=== PATIENT | female | born 2000 | race Caucasian/White ===

== ENCOUNTER 2019-02-14 12:17 | Outpatient (RCR) | payer OTHER, SELFPAY ==
--- NOTE | 2019-02-14 12:17 | COCO.CNN ---
Primary Reason for Visit Insurance Referral to Care Coordination Referral to Care Coordination: No Referral to Services: No - Referral From Referral From: Self Care Plan - Plan of Care Assessment/Background: Patient walked into [facility] office to apply for insurance. Completed intake- gave intake to [facility] navigator/CHW. Plan of Care: Plan to reconnect with patient to discuss insurance. [facility] Self Management Goals: insurance Confidence Level (enter 1-10): 10 Action Plan/Progress: Plan to reconnect with patient to discuss insurance.
[2019-02-14 18:02] LABS: *AMPHETAMINES SCREEN URINE Negative (Negative); *BARBITURATES SCREEN URINE Negative (Negative); *BENZODIAZEPINES SCREEN URINE Negative (Negative); Cannabinoids THC Negative (Negative); Cocaine Screen,Urine Negative (Negative); METHADONE URINE SCREEN Negative (Negative); OPIATES URINE SCREEN Negative (Negative)
[2019-02-14 18:55] LABS: Tricyclic Antidepressants Negative (Negative)
--- NOTE | 2019-02-17 14:51 | PDOC.CNN_ITS ---
Primary Reason for Visit Insurance Referral to Care Coordination Referral to Care Coordination: No Referral to Services: No - Referral From Referral From: Self Care Plan - Plan of Care Assessment/Background: CHW reached out to patient via phone to follow up. CHW connected with [facility] navigator Fely and determined that patient is not eligible for Medicaid. CHW notified patient of mistake indicating that patient is not eligible for Medicaid. Discussion included completing patient assistance applications. Plan of Care: Patient plans to attend scheduled appointment at [facility] with CHW on 02/06. [facility] Self Management Plan Complete?: Yes Confidence Level (enter 1-10): 10 Action Plan/Progress: Patient plans to attend scheduled appointment at [facility] with CHW on 02/06.
--- NOTE | 2019-02-18 10:52 | PDOC.CNN_ITS ---
Primary Reason for Visit Financial Referral to Care Coordination Referral to Care Coordination: No Referral to Services: No - Referral From Referral From: Self Care Plan - Plan of Care Assessment/Background: Patient attended scheduled appointment at [facility] office. CHW supported patient in completing patient assistance applications for [facility] and [facility]. Patient plans to gather needed forms for patient assistance applications before applications can be submitted. Once patient gathers forms and brings them to CHW- CHW will submit applications. Patient plans to schedule appointment at [facility] for care.
[2019-02-24 13:19] LABS: Buprenorphine Negative; Norbuprenorphine Negative
--- NOTE | 2019-02-27 15:38 | COCO.CNN ---
Primary Reason for Visit Financial Referral to Care Coordination Referral to Care Coordination: No Referral to Services: No - Referral From Referral From: Self Care Plan - Plan of Care Assessment/Background: Patient and CHW in contact at [facility] office. Discussed patient assistance applications- patient is still in need of her husbands tax return and bank statements before applications can be submitted/ processed. Plan of Care: Patient plans to return with bank statements and copy of taxes. Once CHW has forms applications will be completed and submitted. [facility] Self Management Plan Complete?: Yes Self Management Goals: medical/financial Confidence Level (enter 1-10): 10 Action Plan/Progress: Patient plans to return with bank statements and copy of taxes. Once CHW has forms applications will be completed and submitted.
== END 2019-02-27 23:59 | disposition home or self-care (01) ==
LOC: COCO 12:17
PROVIDERS: Advanced Practice Midwife; PCP Pediatrics; Visit Provider Pediatrics
DX: Z34.92 Encounter for supervision of normal pregnancy, unspecified, second trimester (principal)
CPT/HCPCS: 80307; 87086

== ENCOUNTER 2019-03-17 01:43 | Outpatient (CLI) | payer OTHER, SELFPAY ==
--- NOTE | 2019-03-17 14:32 | DI.US_ITS ---
EXAM: US OB 2-3 TRIMESTER CLINICAL HISTORY: ,z34.90 TECHNIQUE: Ultrasound performed using standard protocol. COMPARISON: No exams were available for comparison FINDINGS: The fetus is in breech position. The placenta is posterior. Biometric measurements correspond to 21 weeks 6 days and an EDC of 22 July 2019. No abnormalities are seen. The amount of amnioti c fluid appears visually normal. IMPRESSION: survey is within normal limits.
== END 2019-03-17 02:03 ==
PROVIDERS: Visit Provider Advanced Practice Midwife
DX: Z34.92 Encounter for supervision of normal pregnancy, unspecified, second trimester (principal)
CPT/HCPCS: 76805

== ENCOUNTER 2019-05-02 01:51 | Outpatient (CLI) | payer OTHER, SELFPAY ==
[2019-05-02 15:20] LABS: HCT 33.2 % (36.0-46.0); HGB 11.4 g/dL (12.0-15.5); Mean Corp. HGB Concentration 34.3 g/dL (32.0-36.0); Mean Corpuscular Hemoglobin 30.4 pg (27.0-33.0); Mean Corpuscular Volume 88.5 fL (80-95); Mean Platelet Volume 8.6 fL (8.0-11.0); Platelet Count 268 x1000/uL (130-400); RBC 3.75 m/cumm (4.00-5.20); RBC Distribution Width 12.3 % (11.7-14.6); White Blood Cell Count 12.25 k/cumm (4.4-10.8)
[2019-05-02 15:27] LABS: Glucose,1 Hr (Glucola) 94 mg/dL (80-140)
[2019-05-05 11:42] LABS: Hepatitis C Ab w Rflx HCV PCR Negative (Negative)
[2019-05-05 13:22] LABS: Varicella IgG Antibody Negative (See Note)
== END 2019-05-02 02:11 ==
PROVIDERS: Advanced Practice Midwife; Visit Provider Obstetrics & Gynecology
DX: Z34.91 Encounter for supervision of normal pregnancy, unspecified, first trimester (principal); Z01.84 Encounter for antibody response examination; Z11.59 Encounter for screening for other viral diseases
CPT/HCPCS: 36415; 82950; 85027; 86787; 86803; 86850; 86900; 86901

== ENCOUNTER 2019-06-08 18:08 | Outpatient (CLI) | payer OTHER, SELFPAY | END 2019-06-08 18:28 | PROVIDERS: Visit Provider Obstetrics & Gynecology | DX: O36.8130 Decreased fetal movements, third trimester, not applicable or unspecified (principal); O32.1XX0 Maternal care for breech presentation, not applicable or unspecified; Z3A.34 34 weeks gestation of pregnancy | CPT/HCPCS: 59025 ==

== ENCOUNTER 2019-07-04 17:08 | Outpatient (REF) | payer OTHER, SELFPAY | END 2019-07-04 17:28 | LOC: LBN 17:08 | PROVIDERS: Visit Provider Obstetrics & Gynecology | DX: Z34.93 Encounter for supervision of normal pregnancy, unspecified, third trimester (principal); Z36.85 Encounter for antenatal screening for Streptococcus B | CPT/HCPCS: 87081 ==

== ENCOUNTER 2019-07-07 16:21 | Outpatient (REF) | payer OTHER, SELFPAY ==
[2019-07-07 17:24] LABS: *AMPHETAMINES SCREEN URINE Negative (Negative); *BARBITURATES SCREEN URINE Negative (Negative); *BENZODIAZEPINES SCREEN URINE Negative (Negative); Cannabinoids THC Negative (Negative); Cocaine Screen,Urine Negative (Negative); METHADONE URINE SCREEN Negative (Negative); OPIATES URINE SCREEN Negative (Negative)
[2019-07-07 17:53] LABS: Tricyclic Antidepressants Negative (Negative)
[2019-07-12 13:34] LABS: Buprenorphine Negative
== END 2019-07-07 16:41 ==
LOC: LBN 16:21
PROVIDERS: Visit Provider Obstetrics & Gynecology
DX: Z34.93 Encounter for supervision of normal pregnancy, unspecified, third trimester (principal)
CPT/HCPCS: 80307

== ENCOUNTER 2019-07-08 06:34 | Observation (INO) | payer OTHER, SELFPAY ==
[2019-07-08] MEDS: Terbutaline 1 MG/ML VIAL (07:26)
--- NOTE | 2019-07-08 07:55 | W.PM.HP.N ---
Date of service: 07/08/19 Time of Service: 07:55 Assessment and Plan Assessment and plan (1) : Status: Acute (2) Breech presentation: Status: Acute Assessment and plan: Plan to proceed with external cephalic version. The patient was counseled on risks related to this procedure including injury, placental abruption, rupture of membranes and persistent malpresentation. All questions were answered to the patient satisfaction and consent for procedure was obtained. History of Present Illness History of Present Illness Chief Complaint: 38 weeks. Breech presentation Narrative: 18 year old @38.2 weeks presents for external cephalic version. The patient has been known to have a fetus in breech presentation confirmed by ultrasound yesterday. Her course has been uncomplicated to this point. She is generally healthy with no chronic medical problems. Review of Systems All systems reviewed & are unremarkable except as noted in HPI and below PFSH Medical History (Updated 07/08/19 @ 08:01 by Jaime Beverly MD) Depression (Chronic) counselling in the past, zoloft in the past, in high school Irregular menses (Acute) Scoliosis deformity of spine (Acute 12/20/12) THORASIC - 11 DEGREES Family History (Updated 02/14/19 @ 15:17 by Elise Fuchs CNM) Mother Healthy adult on routine physical examination Depression Father Healthy adult on routine physical examination Other Diabetes MGF Personal history of malignant neoplasm MGF PGF-lung,bone Heart disease maternal side Social History (Updated 02/07/18 @ 12:56 by Deborah Daugherty RN) Smoking/Tobacco Use Status: Never Alcohol Intake: never Drug use: Never Substance use type: does not use Do you feel safe in your relationship?: Yes Female Reproductive History Menstrual control method: none History History 1 Para Hx # Term Pregnancies 0 Multiple births Hx # Pregnancies Ectopic pregnancies AB induced Hx Number of Living Children AB spontaneous Meds Home Medications and Allergies Home Medications Medication Instructions Recorded Confirmed Type prenat.vits,breezy,wly-jcoi-ibbld 1 tab PO DAILY 02/14/19 07/07/19 History omeprazole 40 mg capsule,delayed 40 mg PO BID #30 cap 05/02/19 07/07/19 Rx release Allergies Allergy/AdvReac Type Severity Reaction Status Date / Time No Known Allergies Allergy Verified 07/07/19 10:57 Exam GI Other: Bedside ultrasound confirms fetus in zaina breech presentation.
--- NOTE | 2019-07-08 08:02 | W.PM.OP ---
Date of service: 07/08/19 Time of Service: 08:02 Operative Note Operative Note DATE OF PROCEDURE: 07/08/19 PRE-OP DIAGNOSIS: 1. 38 weeks gestation 2. Zaina breech presentation POST-OP DIAGNOSIS: same PROCEDURE: External cephalic version SURGEON: Jaime Beverly ANESTHESIA: none ESTIMATED BLOOD LOSS: 0 PATHOLOGY: none sent COMPLICATIONS: None Patient was transported to: floor Patient's condition: stable Findings: Ultrasound confirms fetus to be in zaina breech presentation. Posterior placenta noted. Procedure Description: The patient was pretreated with 0.5 mg of subcutaneous terbutaline. The breech was elevated from the pelvis and had flexed and attempt to rotate the fetus. I was able to rotate the fetus part way but was unable to convert to cephalic presentation. After several attempts the procedure was concluded and the fetus returned to breech presentation spontaneously.
== END 2019-07-08 08:40 | disposition home or self-care (01) ==
PROVIDERS: Admitting Provider Obstetrics & Gynecology; Visit Provider Obstetrics & Gynecology
DX: O32.1XX0 Maternal care for breech presentation, not applicable or unspecified (principal); Z3A.38 38 weeks gestation of pregnancy
CPT/HCPCS: 59412; 99223; G0378

== ENCOUNTER 2019-07-14 13:19 | Outpatient (CLI) | payer OTHER, SELFPAY ==
[2019-07-14 13:35] LABS: HCT 34.5 % (36.0-46.0); HGB 11.6 g/dL (12.0-15.5); Mean Corp. HGB Concentration 33.6 g/dL (32.0-36.0); Mean Corpuscular Hemoglobin 29.4 pg (27.0-33.0); Mean Corpuscular Volume 87.3 fL (80-95); Mean Platelet Volume 8.5 fL (8.0-11.0); Platelet Count 243 x1000/uL (130-400); RBC 3.95 m/cumm (4.00-5.20); RBC Distribution Width 12.7 % (11.7-14.6); White Blood Cell Count 12.07 k/cumm (4.4-10.8)
== END 2019-07-14 13:39 ==
PROVIDERS: Visit Provider Obstetrics & Gynecology Gynecology
DX: O32.1XX0 Maternal care for breech presentation, not applicable or unspecified (principal); Z34.93 Encounter for supervision of normal pregnancy, unspecified, third trimester; Z01.812 Encounter for preprocedural laboratory examination
CPT/HCPCS: 36415; 85027; 86850; 86900; 86901

== ENCOUNTER 2019-07-16 06:12 | Inpatient (IN) | payer OTHER, SELFPAY ==
[2019-07-16 07:15] VITALS: BP 111/72; PULSE 80; RESP 17; TEMP 36.9; O2SAT 99
[2019-07-16] MEDS: ceFAZolin 2 GM/50 ML BAG IVPB (07:25)
[2019-07-16] MEDS: Sodium Citrate 30 ML CUP PO (07:25)
--- NOTE | 2019-07-16 07:41 | HPE_ITS ---
Date of service: 07/16/19 Time of Service: 07:41 Assessment and Plan Assessment and plan (1) Breech presentation: Status: Acute Assessment and plan: Plan to proceed with primary section for wilda ech presentation. Risks of surgery including hemorrhage, infection, and injury to other organs such as bowel and bladder were reviewed with the patient. All questions were answered to the patient's satisfaction and consent for surgery was obtained. (2) : Status: Acute History of Present Illness History of Present Illness Chief Complaint: Breech presentation at term Narrative: 18 year old at 39 weeks gestation presents today for primary section secondary to breech presentation. The patient's course has been uncomplicated. She is generally healthy. She did undergo an attempt at ECV one week ago which was unsuccessful. Review of Systems All systems reviewed & are unremarkable except as noted in HPI and below PFSH Social History (Updated 02/07/18 @ 12:56 by Deborah Daugherty RN) Smoking/Tobacco Use Status: Never Alcohol Intake: never Drug use: Never Substance use type: does not use Do you feel safe at home: Yes Do you feel safe in your relationship?: Yes Female Reproductive History Menstrual control method: none History History 1 Para Hx # Term Pregnancies 0 Multiple births Hx # Pregnancies Ectopic pregnancies AB induced Hx Number of Living Children AB spontaneous Meds Home Medications and Allergies Home Medications Medication Instructions Recorded Confirmed Type prenat.vits,brezey,zkv-ctuz-xtgso 1 tab PO DAILY 02/14/19 07/14/19 History Allergies Allergy/AdvReac Type Severity Reaction Status Date / Time No Known Allergies Allergy Verified 07/14/19 12:40 Exam Resp Auscultation: clear to auscultation bilaterally Cardio Rate: regular rate Rhythm: regular rhythm Results Last Vital Signs Temp 98.4 F 07/16/19 07:15 Pulse 80 07/16/19 07:15 Resp 17 07/16/19 07:15 BP 111/72 07/16/19 07:15 Pulse Ox 99 07/16/19 07:15
[2019-07-16] MEDS: Lactated Ringers 1,000 ML 125 ML IV ×3 (08:50→12:19)
[2019-07-16] MEDS: Bupivacaine 0.25% Pres-Free 30 ML VIAL (09:06)
--- NOTE | 2019-07-16 13:29 | ROE_ITS ---
Date of service: 07/16/19 Time of Service: 13:29 Operative Note Operative Note DATE OF PROCEDURE: 07/16/19 PRE-OP DIAGNOSIS: 39 weeks gestation. Breech presentation POST-OP DIAGNOSIS: same PROCEDURE: Primary low transverse section SURGEON: Jaime Beverly ASSISTING SURGEON: Angelica Boss ANESTHESIA: spinal ESTIMATED BLOOD LOSS: 500 PATHOLOGY: none sent COMPLICATIONS: None Patient was transported to: PACU Patient's condition: stable Findings: 1. Delivered a vigorous LBM infant with 9,9 Procedure Description: The patient was taken to the operating room and after adequate spinal anesthesia was achieved the patient was placed in supine position with a left lateral tilt. The patient was prepped and draped in the usual sterile manner. A Pfannenstiel incision was then made with a #10 scalpel and sharp dissection was carried down to the underlying layer of fascia. The fascia was incised in the midline and the incision was carried laterally in either direction with Holt scissors. The superior and inferior aspects of the fascial incision were dissected off the underlying layer rectus muscles using both blunt and sharp dissection. The rectus muscles and peritoneum were divided in the midline with blunt and sharp dissection. The Leon retractor was placed. The vesicouterine flap was tented up with pickups and incised sharply with Metzenbaum scissors and the incision was carried laterally in either direction with the Metzenbaum scissors. The bladder flap was then created digitally. The lower uterine segment was incised in a transverse manner with the scalpel and the incision was carried laterally direction via stretch. The infant was found in zaina breech presentation and delivered atraumatically. The mouth and nose were suctioned. The cord was clamped and cut. The infant was handed off to the awaiting tenter frame operator. The placenta was manually extracted. The uterus was cleared of all clots and debris. The hysterotomy was closed with a running locked stitch of #1 chromic. A second imbricating layer of #1 chromic in a Lambert stitch was used to complete the repair. The vesicouterine flap was reapproximated with a running stitch of 3-0 Vicryl. The gutters were cleared of all clots and debris. The peritoneum was closed with a running stitch of 2-0 V icryl. The subfascial space was thoroughly inspected and noted to be hemostatic. The fascia was closed with a running stitch of 0 Vicryl. The subcutaneous tissues were closed with interrupted sutures of 3-0 Vicryl. The skin was closed with a running subcuticular stitch of 4-0 Monocryl and Dermabond was applied. The procedure was concluded at this point. Sponge, lap and needle counts were correct at the conclusion of the procedure and the patient was transferred to PACU in stable condition.
[2019-07-16] MEDS: Ondansetron 4 MG/2 ML VIAL IVP (15:25)
[2019-07-16] MEDS: Ketorolac 30 MG/ML VIAL IVP ×2 (15:59→21:49)
[2019-07-16] MEDS: Lactated Ringers 1,000 ML 120 ML IV (20:47)
[2019-07-16] MEDS: Normal Saline Flush 10 ML SYR IV (21:50)
[2019-07-17] MEDS: Lactated Ringers 1,000 ML 120 ML IV ×2 (00:27→08:30)
[2019-07-17] MEDS: Ketorolac 30 MG/ML VIAL IVP ×2 (04:05→11:19)
[2019-07-17 06:44] LABS: HCT 27.4 % (36.0-46.0); HGB 9.1 g/dL (12.0-15.5); Mean Corp. HGB Concentration 33.2 g/dL (32.0-36.0); Mean Corpuscular Hemoglobin 29.3 pg (27.0-33.0); Mean Corpuscular Volume 88.1 fL (80-95); Mean Platelet Volume 8.5 fL (8.0-11.0); Platelet Count 191 x1000/uL (130-400); RBC 3.11 m/cumm (4.00-5.20); RBC Distribution Width 12.5 % (11.7-14.6); White Blood Cell Count 16.86 k/cumm (4.4-10.8)
--- NOTE | 2019-07-17 09:24 | W.PM.PROGNOT ---
Date of Service Date of service: 07/17/19 Time of Service: 09:24 Assessment and Plan Assessment and plan (1) Status post primary low transverse section: Status: Acute Assessment and plan: Status post primary low transverse section for breech presentation. Patient may shower today and remove dressing. Continue routine postoperative care. Subjective Subjective Interval history since last seen: Doing well today. Pain well controlled. She did ambulate last evening and Hanley catheter was also removed last evening. Lochia is minimal Objective Objective Clinical Data: Abnormal lab results 07/17/19 Range/Units 06:32 WBC 16.86 H (4.4-10.8) k/cumm RBC 3.11 L (4.00-5.20) m/cumm Hgb 9.1 L D (12.0-15.5) g/dL Hct 27.4 L D (36.0-46.0) % Vital Signs Temperature 98.4 F 07/16/19 07:15 Pulse 80 07/16/19 07:15 Pulse Rhythm Regular 07/16/19 07:15 Respiratory Rate 17 07/16/19 07:15 Blood Pressure 111/72 07/16/19 07:15 Pulse Oximetry 99 07/16/19 07:15 Oxygen Delivery Method Room Air 07/16/19 07:15 Oxygen Flow Rate 0 07/16/19 07:15 Pain Level 3 07/17/19 04:05 Intake & Output 07/16/19 07/16/19 07/17/19 11:59 23:59 11:59 Intake Total 518.75 / 1175.833 657.083 / 8833.627 9987 / 2390 Output Total 700 / 700 Balance -181.25 / 475.833 657.083 / 373.419 2745 / 2390 Weight 178 lb 15.999 oz Intake: IV 518.75 / 1175.833 657.083 / 3057.618 2050 / 2390 Output: Urine 200 / 200 Estimated Blood Loss 500 / 500 Other: Urine Color Yellow Urine Appearance Clear Laboratory Results WBC 16.86 k/cumm (4.4-10.8) H 07/17/19 06:32 RBC 3.11 m/cumm (4.00-5.20) L 07/17/19 06:32 Hgb 9.1 g/dL (12.0-15.5) L D 07/17/19 06:32 Hct 27.4 % (36.0-46.0) L D 07/17/19 06:32 MCV 88.1 fL (80-95) 07/17/19 06:32 MCH 29.3 pg (27.0-33.0) 07/17/19 06:32 MCHC 33.2 g/dL (32.0-36.0) 07/17/19 06:32 RDW 12.5 % (11.7-14.6) 07/17/19 06:32 Plt Count 191 x1000/uL (130-400) 07/17/19 06:32 MPV 8.5 fL (8.0-11.0) 07/17/19 06:32
[2019-07-17] MEDS: oxyCODONE 5 mg/Acetaminophen 325 mg TAB PO (19:18)
[2019-07-17] MEDS: Docusate Sodium 100 MG CAP PO (19:19)
[2019-07-17] MEDS: Ibuprofen 600 MG TAB PO (19:19)
[2019-07-18] MEDS: oxyCODONE 5 mg/Acetaminophen 325 mg TAB PO (03:39)
[2019-07-18] MEDS: Ibuprofen 600 MG TAB PO (03:39)
== END 2019-07-18 11:00 | disposition home or self-care (01) | DRG 788 ==
LOC: PDS 06:12 → OBS 06:18
PROVIDERS: Admitting Provider Obstetrics & Gynecology; Visit Provider Obstetrics & Gynecology
PROC: 10D00Z1 Extraction of Products of Conception, Low, Open Approach (ICD-10-PCS; CPT 59514; principal; 2019-07-16 07:30)
DX: O64.1XX0 Obstructed labor due to breech presentation, not applicable or unspecified (principal); Z3A.39 39 weeks gestation of pregnancy; Z37.0 Single live birth
CPT/HCPCS: 59514; 36415; 85027; 99223; 99233; J0690; J1100; J1885; J2370; J2405; J3010; J3490

== ENCOUNTER 2021-02-24 03:43 | Emergency (ER) | payer BC, SELFPAY ==
--- NOTE | 2021-02-24 03:47 | ED.GENADUL_ITS ---
Discharge Plan Disposition Patient Disposition: HOME Condition: Improving Discharge Details Clinical Impression: Upper abdominal pain Primary Care Provider: Paulette Smith ED Provider: Santino Richter Meds and New Rx's Prescriptions: New omeprazole 40 mg capsule,delayed release(DR/EC) 40 mg PO DAILY Qty: 30 RF: 0 Continued 28-800 mg-mcg Tablet 1 tab PO DAILY RF: 0 Discharge Instructions Instructions: Abdominal Pain (ED) Additional Instructions: Your symptoms are consistent with acid related problems. Recommend bland diet over the next couple of days. Start omeprazole and take daily. Follow-up with primary care in a couple of weeks. Return to ED for fever, new or worsening pain, persistent vomiting, other concerns per Referrals: Paulette Smith, [employer] [Primary Care Provider] - Medical Decision Making Patient presenting with upper abdominal pain with normal vital signs and unremarkable abdominal exam. She has no guarding or tenderness on her exam. Symptoms seem most likely acid related. Doubt gallbladder, pancreas, liver problems. Will place IV and check labs. Will treat with ondansetron, famotidine, GI cocktail. Laboratory studies returned and are unremarkable. Patient symptoms markedly improved after medication. We will plan discharge on PPI and follow-up with primary care in a couple week. Return to ED for worsening pain, persistent vomiting, fever, other concerns. Lab Data Lab results reviewed: Yes I reviewed the patient's lab results. HPI General Mode of arrival: ambulatory . Date/Time Provider Initiated Documentation: 02/24/21 03:47 . Limitations to Documentation: no limitations . Information obtained by: patient and RN notes reviewed . HPI Narrative: Patient presents to the ED after she woke up with upper abdominal pain this morning. Patient was fine when she went to bed last night. 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 She has nausea but denies vomiting or diarrhea. She does not imbibe a lot of caffeine or alcohol, does not smoke, does not use nonsteroidals regularly. She has no chest pain, cough, shortness of breath, fever. She has no back pain or urinary symptoms. She has no pelvic pain, vaginal discharge, vaginal bleeding. She does not recall having episodes like this in the past. Related Data Home Medications Medication Instructions Recorded Confirmed 1 tab PO DAILY 02/24/21 02/24/21 omeprazole 40 mg PO DAILY #30 cap 02/24/21 Previous Rx's Medication Instructions Recorded omeprazole 40 mg PO DAILY #30 cap 02/24/21 Allergies Allergy/AdvReac Type Severity Reaction Status Date / Time No Known Allergies Allergy Verified 02/24/21 03:52 Review of Systems Narrative: As documented in HPI otherwise negative as below. Const: no fever, chills, weakness Resp: no cough, SOB, pleuritic pain CV: no CP, diaphoresis, edema, syncope GI: no vomiting, diarrhea Neuro: no headache, numbness, focal weakness, confusion PFSH Medical History Generalized anxiety disorder Major depressive disorder Scoliosis Surgical History History of section (07/16/19) breech presentation. Chris Samson. Family History Mother Depression Father No problems noted. Sister Depression Sister No problems noted. Sister No problems noted. Sister No problems noted. Son No problems noted. Maternal Grandfather Cancer unknown type Maternal Grandmother No problems noted. Paternal Grandmother , in his 60s Cancer Unknown type Social History Smoking/Tobacco Use Status: Never Smoking risk assessment performed?: Yes Alcohol Intake: current Alcohol Intake frequency: holidays/special occasions only Alcohol type: wine and hard liquor Drug use: Daily Substance use type: marijuana Caregiver/Support person: No Household members: spouse, children and other Details: LeannaJesse AdrianaMainor Housing: apartment Number of Children: 1 Communication Needs: None Do you need help understanding health information?: Never current occupation: [employer] Pets and animals: Yes Pets and animals: cat(s) and dog(s) Sexually active: Yes Do you think of yourself as: straight/heterosexual Current gender identity: female What is your relationship status?: How often do you talk on the phone with friends or family?: twice per week How often do you get together with friends or relatives?: twice per week How often do you attend muslim or zoroastrian services?: decline to answer Do you belong to any clubs or organized social groups?: no Panel score (0-1 are the most socially isolated patients): 2 Seatbelt use: always Helmet use: Yes Drive intox or ride w/intox racecar driver: No Do you feel safe at home: Yes Do you feel safe in your relationship?: Yes Female Reproductive History Menstrual control method: none History History 1 Para 1 Hx # Term Pregnancies 1 Multiple births Hx # Pregnancies Ectopic pregnancies AB induced Hx Number of Living Children 1 AB spontaneous Past Pregnancies Del. Date GA/Weeks # Outcome Route Wgt Sex Labor Lgth Anesthes ia Location Prov Complic 07/16/19 39 No Successful 3430.[address] Jaime Beverly Delivery Date: 07/16/19 Breech Presentation C/S. Angelica Vaca Exam Narrative Exam Narrative: Const: WDWN female in NAD. HEENT: NC/AT. Normal facial exam. Eyes: Normal conjunctiva and sclera. Neck: Supple. Trachea midline. Lungs: Normal respiratory effort. Lungs are clear. Cor: RRR without murmur/gallop. Good radial pulses. GI: Soft. NT/ND. No guarding or rebound. Back: No CVAT Neuro: A+O x 3. Normal speech, mentation, gait. Cranial nerves II - XII grossly intact. No gross motor or sensory deficit. Ext: No C/C/E. Skin: Warm and dry without rash.
[2021-02-24 03:48] VITALS: BP 117/65; PULSE 96; RESP 20; TEMP 36.8; O2SAT 97
[2021-02-24 04:14] LABS: Abs Immature Grans 0.04 10^3/uL (0.0-0.06); Absolute Eosinophil Count 0.13 10^3/uL (0.0-0.7); Absolute Lymphocyte Count 1.57 10^3/uL (1.2-3.4); Basophils % 0.3; Eosinophils % 1.1; HCT 40.2 % (36.0-46.0); HGB 13.7 g/dL (11.2-15.7); Immature Grans % 0.3; Lymphocytes % 13.1; MCH 29.4 pg (27.0-33.0); MCHC 34.1 % (32.0-36.0); MCV 86.3 fL (80-95); MPV 8.9 fL (8.0-11.0); Monocytes % 6.9; Neutrophils % 78.3; Nucleated RBC 0 %; Platelet Count 246 10^3/uL (130-400); RBC 4.66 10^6/uL (3.93-5.22); RDW 11.7 % (11.7-14.6); RDW-SD 36.9 fL; WBC 11.95 10^3/uL (4.4-10.8)
[2021-02-24 04:18] LABS: Absolute Basophil Count 0.04 10^3/uL (0.0-0.2); Absolute Monocyte Count 0.82 10^3/uL (0.1-0.8); Absolute Neutrophil Count 9.36 10^3/uL (1.2-6.7)
[2021-02-24] MEDS: Ondansetron 4 MG/2 ML VIAL IVP (04:21)
[2021-02-24] MEDS: FAMOTIDINE 20 MG/50 ML BAG 100 MG IVPB (04:22)
[2021-02-24 04:28] LABS: ALT 19 U/L (14-59); AST 12 U/L (15-37); Albumin 3.7 g/dL (3.4-5.0); Alkaline Phosphatase 77 U/L (46-116); Anion Gap 6.7 mmol/L (3-11); BUN 16 mg/dL (7-18); Bilirubin, Total 0.5 mg/dL (0.2-1.0); CO2 28.3 mmol/L (21.0-32.0); CREATININE 0.8 mg/dL (0.55-1.02); Calcium 8.7 mg/dL (8.5-10.1); Chloride 107 mmol/L (98-107); Glucose 94 mg/dL (74-106); Lipase 154 U/L (73-393); Potassium 3.9 mmol/L (3.5-5.1); Sodium 142 mmol/L (136-145); Total Protein 6.9 g/dL (6.4-8.2)
[2021-02-24 04:29] LABS: HCG Qual (Serum) Negative
[2021-02-24 04:59] VITALS: BP 116/82; PULSE 82; RESP 20; TEMP 36.8; O2SAT 97
== END 2021-02-24 04:56 | disposition home or self-care (01) ==
PROVIDERS: Emergency Provider Emergency Medicine; PCP Nurse Practitioner Family
DX: R10.10 Upper abdominal pain, unspecified (principal); R11.0 Nausea
CPT/HCPCS: 36415; 80053; 83690; 96365; 96375; 99284; 84703; 85025; 99283; J2405

== ENCOUNTER 2021-08-19 01:44 | Outpatient (CLI) | payer BC, SELFPAY ==
[2021-08-19 12:35] LABS: HCG Quant, Pregnancy 8526 mIU/mL (1-3)
== END 2021-08-19 01:45 | disposition home or self-care (01) ==
LOC: LBO 01:45
PROVIDERS: PCP Nurse Practitioner Family; Visit Provider Nurse Practitioner Women's Health
DX: N91.2 Amenorrhea, unspecified (principal)
CPT/HCPCS: 36415; 84702

== ENCOUNTER 2021-10-04 01:54 | Outpatient (CLI) | payer BC, SELFPAY ==
[2021-10-04 15:47] LABS: Abs Immature Grans 0.03 10^3/uL (0.0-0.06); Absolute Basophil Count 0.02 10^3/uL (0.0-0.2); Absolute Eosinophil Count 0.11 10^3/uL (0.0-0.7); Absolute Lymphocyte Count 2.86 10^3/uL (1.2-3.4); Absolute Monocyte Count 0.61 10^3/uL (0.1-0.8); Basophils % 0.2; HCT 35.2 % (36.0-46.0); HGB 12.5 g/dL (11.2-15.7); Immature Grans % 0.3; Lymphocytes % 25.8; MCH 29.8 pg (27.0-33.0); MCHC 35.5 % (32.0-36.0); MCV 84 fL (80-95); MPV 8.8 fL (8.0-11.0); Monocytes % 5.5; Neutrophils % 67.2; Platelet Count 249 10^3/uL (130-400); RDW-SD 36.5 fL; WBC 11.09 10^3/uL (4.4-10.8)
[2021-10-04 15:48] LABS: Absolute Neutrophil Count 7.45 10^3/uL (1.2-6.7)
[2021-10-04 16:07] LABS: Cholesterol 225 mg/dL (<200)
[2021-10-04 16:21] LABS: Ferritin 64 ng/mL (8-252); TSH (W/Ref FT4) 2.51 uIU/mL (0.36-3.74)
[2021-10-06 05:28] LABS: Vitamin D 25 Total 29.4 ng/mL (30-100)
[2021-10-06 09:29] LABS: Varicella IgG Antibody Negative (See Note)
[2021-10-06 09:33] LABS: Rubella IgG Ab (UVM) Negative (See Note)
[2021-10-06 09:47] LABS: Hepatitis B Surface Ag Negative (Negative)
[2021-10-06 10:35] LABS: Hepatitis C Ab w Rflx HCV PCR Negative (Negative)
[2021-10-06 10:41] LABS: HIV-1/2 Ag & Ab Screen Negative (Negative)
[2021-10-06 22:38] LABS: Syphilis IgG w/Reflex Nonreactive (Nonreactive)
== END 2021-10-04 01:55 | disposition home or self-care (01) ==
LOC: LBO 01:54
PROVIDERS: PCP Nurse Practitioner Family; Visit Provider Advanced Practice Midwife
DX: Z34.91 Encounter for supervision of normal pregnancy, unspecified, first trimester; Z68.30 Body mass index [BMI] 30.0-30.9, adult
CPT/HCPCS: 36415; 82306; 86787; 86803; 86850; 86900; 86901; 87340; 87389; 82465; 82728; 84443; 85025; 86762; 86780

== ENCOUNTER 2021-10-04 15:56 | Outpatient (REF) | payer BC, SELFPAY ==
--- NOTE | 2021-10-04 14:00 | PAPFT_PTH ---
PATIENT: Naty Tracy LOC: [facility] U#:[id number] AGE/SX: 21/F ROOM: RE10/04/[address]: Shonda Koehler CNM : 2000 BED: DIS: 10/04/2021 SPEC #: [id number] RECD: 10/04/21 18:04 STATUS: CHACORTA CASTILLO #: [id number] NED: 10/04/21 14:[address]: Shonda Koehler DEPT: [facility] Cytology RECD BY: Olivia Garcia ENTERED: 10/04/21 18:04 SP TYPE: PAPFT PAOLA DR: Paulette Smith, [facility] Tissues: 1 - CX/ENDOCX FOR PAP SMEARS Procedures: PAP THIN PREP/UVM Screening Comments: [id number] (CHLAMYDIA/GC)
[2021-10-05 15:03] LABS: Chlamydia Result Negative (Negative); GC Result Negative (Negative)
== END 2021-10-04 15:57 | disposition home or self-care (01) ==
LOC: LBN 15:56
PROVIDERS: PCP Nurse Practitioner Family; Visit Provider Advanced Practice Midwife
DX: Z11.3 Encounter for screening for infections with a predominantly sexual mode of transmission (principal); Z12.4 Encounter for screening for malignant neoplasm of cervix
CPT/HCPCS: 87491; 87591; 88142

== ENCOUNTER 2021-10-14 01:23 | Outpatient (CLI) | payer BC, SELFPAY | END 2021-10-14 01:24 | disposition home or self-care (01) | LOC: LBO 01:24 | PROVIDERS: PCP Nurse Practitioner Family; Visit Provider Advanced Practice Midwife ==

== ENCOUNTER 2022-01-31 01:53 | Outpatient (CLI) | payer BC, SELFPAY ==
[2022-01-31 16:36] LABS: HCT 34.6 % (36.0-46.0); HGB 11.9 g/dL (11.2-15.7); MCH 29.8 pg (27.0-33.0); MCHC 34.4 % (32.0-36.0); MCV 87 fL (80-95); MPV 8.9 fL (8.0-11.0); Platelet Count 223 10^3/uL (130-400); RDW 12.8 % (11.7-14.6); RDW-SD 39.8 fL; WBC 12.13 10^3/uL (4.4-10.8)
[2022-01-31 17:17] LABS: Glucose,1 Hr (Glucola) 110 mg/dL (80-140)
== END 2022-01-31 01:54 | disposition home or self-care (01) ==
LOC: LBO 01:53
PROVIDERS: Advanced Practice Midwife; PCP Nurse Practitioner Family; Visit Provider Advanced Practice Midwife
DX: Z34.93 Encounter for supervision of normal pregnancy, unspecified, third trimester (principal); Z3A.29 29 weeks gestation of pregnancy
CPT/HCPCS: 36415; 82950; 85027

== ENCOUNTER 2022-03-22 14:27 | Outpatient (REF) | payer BC, SELFPAY ==
[2022-03-22 13:31] LABS: *AMPHETAMINES SCREEN URINE Negative (Negative); *BARBITURATES SCREEN URINE Negative (Negative); *BENZODIAZEPINES SCREEN URINE Negative (Negative); Cannabinoids THC Negative (Negative); Cocaine Screen,Urine Negative (Negative); METHADONE URINE SCREEN Negative (Negative); OPIATES URINE SCREEN Negative (Negative)
[2022-03-22 13:33] LABS: Tricyclic Antidepressants Negative (Negative)
[2022-03-30 11:10] LABS: Buprenorphine Negative ng/mL (Cutoff: 5.0); Norbuprenorphine Negative ng/mL (Cutoff: 2.5)
== END 2022-03-22 14:28 | disposition home or self-care (01) ==
LOC: LBN 14:27
PROVIDERS: PCP Nurse Practitioner Family; Visit Provider Advanced Practice Midwife
DX: Z34.93 Encounter for supervision of normal pregnancy, unspecified, third trimester (principal); Z36.85 Encounter for antenatal screening for Streptococcus B; Z3A.36 36 weeks gestation of pregnancy
CPT/HCPCS: 80307; 80348; 87081

== ENCOUNTER → 2022-04-06 01:13 | Outpatient (CLI) | payer BC, SELFPAY ==
--- NOTE | 2022-04-06 07:15 | DI.US_ITS ---
Exam(s) US OB PRASANNA WEIGHT EXAM: US OB PRASANNA WEIGHT CLINICAL HISTORY: hx of breech,z34.90. TECHNIQUE: Transabdominal obstetrical ultrasound performed. COMPARISON: US US OB 2-3 TRIMESTER from 12/02/2021 FINDINGS: Number of fetuses: 1 position: Cephalic. Placental location:There is a grade 2 anterior placenta. No evidence of previa. BIOMETRIC DATA: BPD: 8.96cm, 36weeks 2days HC: 33.17cm,37weeks 6days AC: 33.87cm,37weeks 5days FL: 7.25cm,37weeks 1day EFW:3,211.77g,7lb 1.38oz,39.6% Composite Age:37weeks 2days ANN:04/25/2022 Heart Rate: 146bpm Amniotic fluid index:13.64cm. Visually, amount of fluid is within normal limits. IMPRESSION: 1. Single live intrauterine gestation as above. There has been normal interval growth. 2. Estimated weight is 3212gms. This is the 40th percentile. 3. Amniotic fluid index is 13.6 cm. Visually within normal limits. DATA REPOSITORY:
== END ==
PROVIDERS: PCP Nurse Practitioner Family; Visit Provider Advanced Practice Midwife
DX: Z34.93 Encounter for supervision of normal pregnancy, unspecified, third trimester (principal)
CPT/HCPCS: 76816

== ENCOUNTER 2022-04-18 19:57 | Inpatient (IN) | payer BC, SELFPAY ==
[2022-04-18 18:42] VITALS: BP 129/79; PULSE 98; TEMP 36.8
[2022-04-18 19:08] VITALS: PULSE 88; O2SAT 99
--- NOTE | 2022-04-18 20:00 | HPE_ITS ---
Date of service: 04/18/22 Time of Service: 20:00 Assessment and Plan Assessment and plan (1) Uterine scar from previous delivery, antepartum: Status: Acute Assessment and plan: Admit to Center for observation. Will reexamine in 2-3 hours for cervical change. Aline admits to poor fluid intake today and PO fluids was recommended. Saline lock placed due to TOLAC and GBS positive status. Continuous monitoring. Comfort measures. Covid- [address] Garcia notified by text page of patient's status. Anticipate . (2) Spontaneous onset of labor: Status: Acute OB-HPI Labor/Delivery History of Present Illness Reason for Visit: labor Chief Complaint: Uterine Contractions. ANN Calculator Estimated Delivery Date Method Current WG Current Estimate 04/17/22 Ultrasound #1 40w 1d Other Estimates 03/07/22 LMP (Uncertain) 46w 0d Comments: Aline presented to the Center and reports contractions sice 3 PM today which are every 3-4 minutes apart. History of Present Expected Delivery Route/Plan Desires TOLAC - CNM FOB/ - Pankaj Tracy (2nd child together) Would choose scheduled C[place]S instead of [place] [facility] [place]- yes to [facility] - Pankaj and her Mom, Nicky. GBS POSITIVE- prophylaxis in labor Specific Issues/Plan 1. Prior C/S for breech. Desires TOLAC, [facility] [place] of sched'ed C/S 1a. Plan for MD appt at 30 wks for consent signed 02/16/22 1c. Had difficulty with spinal, hx scoliosis, anesthesia consult done 03/17 2. BMI >30, declines early glucose, test at 28 weeks 110 3. Declines cfDNA, AFP, & CF/SMA genetic screening tests 4. PAP at initial OB appt negative but with fungal elements present PFSH All Active Problems (Updated 04/18/22 @ 20:55 by Elise Fuchs CNM) Spontaneous onset of labor (Acute) Susceptible to varicella (non-immune), currently (Acute) Rubella non-immune status, antepartum (Acute) Abdominal pain during (Acute) BMI 30.0-30.9,adult (Acute) Uterine scar from previous delivery, antepartum (Acute) (Acute) Medical History (Updated 12/20/22 @ 20:55 by Elise Fuchs CNM) Amenorrhea Generalized anxiety disorder Major depressive disorder RLQ abdominal pain Scoliosis Upper abdominal pain Surgical History History of section (07/16/19) breech presentation. Chris Samson. Family History Mother Depression Father No problems noted. Sister Depression Sister No problems noted. Sister No problems noted. Sister No problems noted. Son No problems noted. Maternal Grandfather Cancer unknown type Maternal Grandmother No problems noted. Paternal Grandmother , in his 60s Cancer Unknown type Social History Smoking/Tobacco Use Status: Never Smoking risk assessment performed?: Yes Alcohol Intake: current Alcohol Intake frequency: holidays/special occasions only Alcohol type: wine and hard liquor Drug use: Daily Substance use type: marijuana Caregiver/Support person: No Household members: spouse, children and other Details: Leanna. MariahMarieljosué Housing: apartment Number of Children: 1 Communication Needs: None Do you need help understanding health information?: Never current occupation: [employer] Pets and animals: Yes Pets and animals: cat(s) and dog(s) Sexually active: Yes Do you think of yourself as: straight/heterosexual Current gender identity: female What is your relationship status?: How often do you talk on the phone with friends or family?: twice per week How often do you get together with friends or relatives?: twice per week How often do you attend confucianism or methodist services?: decline to answer Do you belong to any clubs or organized social groups?: no Panel score (0-1 are the most socially isolated patients): 2 Seatbelt use: always Helmet use: Yes Drive intox or ride w/intox 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 Date GA/Weeks # Preg Succ Route Wgt Sex Labor Lgth Anesth esia Location Prov Complic 07/16/19 39 No 7 lb [address] Jaime [facility] Delivery Date: 07/16/19 Last Updated by: Shonda Koehler Breech, ECV unsuccessful at 38 wks, sched'ed C/S. [place] Meds Allergies and Home Medications Allergies Allergy/AdvReac Type Severity Reaction Status Date / Time No Known Allergies Allergy Verified 04/14/22 11:31 Home Medications Medication Instructions Recorded Confirmed Type vit no.133-ferrous 1 tab PO DAILY 02/24/21 04/14/22 History fumarate 28 mg-folic acid 800 mcg tablet () Exam Physical Exam Vital signs: Pulse Pulse Ox 88 99 04/18/22 19:08 04/18/22 19:08 Detailed Labor and Delivery Exam Dilation: 1 Effacement (%): 50 station: -2 Cervix position: posterior Consistency: soft Boyce Score: Cervical Points Exam 0 1 2 3 Dilation Closed 1-2cm 3-4 cm 5-6cm Effacement 0-30% 40-50% 60-70% 80% Consistency Firm Medium Soft Station -3 -2 -1,0 +1,+2 Position Posterior Mid Anterior Amniotic Membrane Status: Intact Monitor Mode: External Contraction Frequency(min): every 3-5 Contraction Duration(sec): 50-60 Contraction Intensity: Mild/Moderate Fetus A Heart Rate Baseline: 130 Monitor Accelerations: 15 X 15 Monitor Decelerations: Variable (x 1associated with movement) Variability: Moderate (6-25 BPM) Presentation: Vertex Categories: Category I Est. Weight: 7 lb Respiratory Exam Respiratory Exam: Normal Cardiovascular Exam Cardiovascular Exam: Normal Abdominal Exam Abdominal Exam: Normal Exam Exam: Normal Extremities Exam Extremities Exam: Normal Skin Exam Skin Exam: Normal Psychiatric Exam Psychiatric Exam: Normal Results Results Group Beta Strep: Positive Blood Type: AB+ Rubella Status: Immune Varicella Immunity: Immune Risk Assessment Risk for Shoulder Dystocia Historical/Initial OB: POSITIVE FOR: Pre- BMI>30; NEGATIVE FOR: Pelvic Abnormality, Previous Shoulder Dystocia or Previous Macrosomia Delivery Plan @ 40 wks: anticipate Risk for Pre-Eclampsia Yes, if one or more: NEGATIVE FOR: Hx Pre-E/Gest HTN, Chronic HTN, Multiple Gestation, Pre-gestational DM, Renal Disease, Systemic Lupus or APA Syndrome Yes, if 2 or more: POSITIVE FOR: BMI>30; NEGATIVE FOR: Nulliparity, Age>= 35 yrs, >10yr btwn pregnancies, ethinicty, Mother/Sister w/ Pre-E or Previous IUGR Risk for Post- Hemorrhage Initial: NEGATIVE FOR: Multiple Gestation, Previous PPH, Known Clotting Deficiency, Grand Multiparity or Anticoagulation At Risk?: No Risks Reviewed Risks Reviewed Upon Admission: Yes
[2022-04-18 20:19] LABS: Source Nasal/Nares
[2022-04-18 20:21] LABS: HCT 36.7 % (36.0-46.0); HGB 12.5 g/dL (11.2-15.7); MCH 29.3 pg (27.0-33.0); MCHC 34.1 % (32.0-36.0); MCV 86 fL (80-95); MPV 9.1 fL (8.0-11.0); Platelet Count 233 10^3/uL (130-400); RBC 4.26 10^6/uL (3.93-5.22); RDW 12.7 % (11.7-14.6); RDW-SD 39.9 fL; WBC 12.42 10^3/uL (4.4-10.8)
[2022-04-18 20:41] VITALS: BP 122/75; PULSE 84; RESP 16; TEMP 36.6; O2SAT 98
[2022-04-18 20:50] LABS: COVID-19 PCR Negative (Negative)
--- NOTE | 2022-04-18 22:27 | W.PM.OBNL1 ---
Date of service: 04/18/22 Time of Service: 22:27 Pelvic Exam Dilation: 2 Effacement (%): 75 station: -2 Cervix Position: mid Consistency: soft Vaginal Exam Presentation: Cephalic Contractions Monitor Mode: External Contraction Frequency(min): every 3-4 Contraction Duration(sec): 60 Intensity: Moderate/Strong Fetus A Monitor: External (US) Heart Rate Baseline: 125 Variability: Moderate (6-25 BPM) Categories: Category I FHR Rhythm: Regular Accelerations: 15 X 15 Decelerations: Variable Recurrence: Episodic Amniotic Membrane Status: Intact Assessment Note: prolonged deceleration to 90-100 lasting 3-4 minutes. Patient repositioned on left side. IV bolus LR started and oxygen administered via mask. return to baseline 1230-130. Assessment and Plan Assessment and plan (1) Spontaneous onset of labor: Status: Acute Assessment and plan: Will start antibiotics for GBS prophylaxis and continue to assess heart rate pattern. (2) Uterine scar from previous delivery, antepartum: Status: Acute Assessment and plan: OR team called in and Dr. Garcia text paged with patient's status. Objective Abnormal lab results 04/18/22 Range/Units 20:07 WBC 12.42 H (4.4-10.8) 10^3/uL Temp Pulse Resp BP Pulse Ox 98 F 84 16 122/75 98 04/18/22 20:41 04/18/22 20:41 04/18/22 20:41 04/18/22 20:41 04/18/22 20:41 Laboratory Results WBC 12.42 10^3/uL (4.4-10.8) H 04/18/22 20:07 RBC 4.26 10^6/uL (3.93-5.22) 04/18/22 20:07 Hgb 12.5 g/dL (11.2-15.7) 04/18/22 20:07 Hct 36.7 % (36.0-46.0) 04/18/22 20:07 MCV 86 fL (80-95) 04/18/22 20:07 MCH 29.3 pg (27.0-33.0) 04/18/22 20:07 MCHC 34.1 % (32.0-36.0) 04/18/22 20:07 RDW 12.7 % (11.7-14.6) 04/18/22 20:07 Plt Count 233 10^3/uL (130-400) 04/18/22 20:07 MPV 9.1 fL (8.0-11.0) 04/18/22 20:07 COVID-19 Source Nasal/Nares 04/18/22 20:07 SARS-CoV-2 (PCR) Negative (Negative) 04/18/22 20:07 Patient ABO/Rh AB Positive 04/18/22 20: Antibody Screen NEGATIVE 04/18/22 20:07 Subjective Interval history since last seen: Contractions continue to be regular and moderate strength. Aline is coping well with the discomfort. Results Hemoglobin/Hematocrit: Hgb 12.5 g/dL (11.2-15.7) 04/18/22 20:07 Hct 36.7 % (36.0-46.0) 04/18/22 20:07 Abnormal Lab Findings: Abnormal Labs 04/18/22 20: WBC 12.42 H
[2022-04-18] MEDS: Normal Saline 50 ML 200 ML (22:29)
[2022-04-18 22:41] VITALS: BP 122/69; TEMP 36.8
[2022-04-18] MEDS: Lactated Ringers 500 ML IV (22:49)
--- NOTE | 2022-04-18 22:51 | ANES.PREOP_ITS ---
General Info Date of Service Date Performed: 04/18/22 Height: 5 ft 4 in Weight: 91.626 kg Body Mass Index (BMI): 34.7 Meds Allergies and Home Medications Allergies Allergy/AdvReac Type Severity Reaction Status Date / Time No Known Allergies Allergy Verified 04/14/22 11:31 Home Medication Medication Instructions Recorded vit no.133-ferrous 1 tab PO DAILY 02/24/21 fumarate 28 mg-folic acid 800 mcg tablet () Current Visit Medications: Current Medications Generic Name Dose Route Start Last Admin Trade Name Freq PRN Reason Stop Dose Admin Sodium Chloride 500 mls @ 0 mls/hr 04/18/22 20:03 Saline 500ml Bag IV PRN PRN As Directed Penicillin G Potassium 3,000, 50 mls @ 100 mls/hr 04/18/22 22:30 000 units/ Sodium Chloride IVPB Q4H ZENA Penicillin G Potassium 5,000, 100 mls @ 200 mls/hr 04/18/22 22:26 000 units/ Sodium Chloride IVPB 04/18/22 22:55 NOW ONE Sodium Chloride 500 mls @ 0 mls/hr 04/18/22 22:26 Saline 500ml Bag IV PRN PRN As Directed Ringer's Solution 1,000 mls @ 125 mls/hr 04/18/22 22:30 IV INFUSION ZENA Ringer's Solution 500 mls @ 500 mls/hr 04/18/22 22:27 IV 04/18/22 23:26 BOLUS ONE IV Miscellaneous Supplies 1 each 04/18/22 20:15 Iv Access IV DIRECTED ZENA IV Miscellaneous Supplies 1 each 04/18/22 22:30 Iv Access IV DIRECTED ZENA Sodium Chloride 0 ml 04/18/22 20:03 Normal Saline Flush 10 Ml Syr IVP PRN PRN Sodium Chloride 0 ml 04/18/22 22:26 Normal Saline Flush 10 Ml Syr IVP PRN PRN PFSH Active Problems Active Problems: Problem Status Onset Code Spontaneous onset of labor Susceptible to varicella (non-immune), currently O09.899, Z28.39 Rubella non-immune status, antepartum O09.899, Z28.39 Abdominal pain during O26.899, R10.9 BMI 30.0-30.9,adult Z68.30 Uterine scar from previous delivery, antepartum O34.219 Z34.90 Medical History Medical History (Updated 04/18/22 @ 20:55 by Elise Fuchs CNM) Amenorrhea Generalized anxiety disorder Major depressive disorder RLQ abdominal pain Scoliosis Upper abdominal pain Surgical History Surgical History History of section (07/16/19) breech presentation. Chris Samson. Tobacco Smoking/Tobacco Use Status: Never Passive smoking exposure: Yes Alcohol Alcohol Intake: current Alcohol intake frequency: holidays/special occasions only Alcohol type: wine and hard liquor Substance Use Substance use: Daily Substance use type: marijuana Prental History History 2 Para 1 Hx # Term Pregnancies 1 Multiple births 0 Hx # Pregnancies 0 Ectopic pregnancies 0 AB induced 0 Hx Number of Living Children 1 AB spontaneous 0 Past Pregnancies Del. Date GA/Weeks # Preg Succ Route Wgt Sex Labor Lgth Anesth esia Location [facility] 07/16/19 39 No [address]30.[address] Jaime [facility] Delivery Date: 07/16/19 Last Updated by: Shonda Koehler Breech, ECV unsuccessful at 38 wks, sched'ed C/Tabitha Samson Vital Signs and Lab Results Vital Signs Most Recent Vital Signs in EMR: Most Recent Vital Signs Temp Pulse Resp BP Pulse Ox 36.6 C 84 16 122/75 98 04/18/22 20:41 04/18/22 20:41 04/18/22 20:41 04/18/22 20:41 04/18/22 20:41 Lab Results Result Diagrams: 04/18/22 20:07 Blood Type / Crossmatch: Patient ABO/Rh AB Positive 04/18/22 Antibody Screen NEGATIVE 04/18/22 Complete Blood Count: White Blood Count 12.42 10^3/uL (4.4-10.8) H 04/18/22 20:07 Red Blood Count 4.26 10^6/uL (3.93-5.22) 04/18/22 20:07 Hemoglobin 12.5 g/dL (11.2-15.7) 04/18/22 20:07 Hematocrit 36.7 % (36.0-46.0) 04/18/22 20:07 Platelet Count 233 10^3/uL (130-400) 04/18/22 20:07 Complete Metabolic Panel: No Data to Display Liver Function Panel: No Data to Display Coagulation Panel: No Data to Display Cardiac Panel: No Data to Display Arterial Blood Gas: No Data to Display Venous Blood Gas: No Data to Display Pancreas Panel: No Data to Display Thyroid Panel: No Data to Display Infectious Disease: Coronavirus (COVID-19)(PCR) Negative (Negative) 04/18/22 20:07 Coronavirus 2019 Source Nasal/Nares 04/18/22 20:07 Blood Cultures: No Data to Display Toxicology Panel: Urine Amphetamines Screen Negative (Negative) 03/22/22 10:45 Urine Benzodiazepines Screen Negative (Negative) 03/22/22 10:4 5 Urine Barbiturates Screen Negative (Negative) 03/22/22 10:45 Urine Cocaine Screen Negative (Negative) 03/22/22 10:45 Urine Methadone Screen Negative (Negative) 03/22/22 10:45 Urine Opiates Screen Negative (Negative) 03/22/22 10:45 Ur Tricyclic Antidepressants Screen Negative (Negative) 10:45 Ur Tetrahydrocannabinol (THC) Scrn Negative (Negative) 2 10:45 Panel: No Data to Display Imaging and Studies Imaging and Studies Study information below may be from another EMR and interpreted by another provider. Please see original notes in EMR for more complete details. Pulmonary Function Summary: November 16, 2015 PRIMARY CARE PROVIDER: Sarah Plata M.D. Spirometry shows no evidence of obstructive airways disease, no bronchodilator response. IMPRESSION: Normal spirometry. EXERCISE BRONCHOPROVOCATION CHALLENGE TESTING Good patient effort. After normal spirometry, exercise bronchoprovocation was carried out for 2 minutes. It is not specified though whether it was done with treadmill or by ergometry. At the end of 2 minutes, the patient had a 16% drop in FEV1. IMPRESSION: Most likely this represents a positive exercise bronchoprovocation test. However, the 20% drop in FEV1 was not achieved because the test was not conducted for long enough. Nonetheless, given the very distinct drop in her FEV1 in a very short period of time on the test, it is fairly certainly that this would have been a positive exercise bronchoprovocation test had the test been conducted properly for the entire 5/10/15 minute intervals. Therefore clinical correlation is recommended. Anesthesia Assessment and Plan Anesthesia History Personal History: No History of Anesthesia Complications Family History: No Family History of Anesthesia Complications Exercise Tolerance Exercise Tolerance: Metabolic Equivalents>4 Pertinent Negatives Pertinent Negatives: No Symptoms of GERD, No Major Cardiovascular Symptoms or Complaints and No Major Pulmonary Symptoms or Complaints Cardiac & Pulmonary Exam Cardiac Exam: Normal S1/S2 Heart Sounds Pulmonary Exam: Clear Bilateral Breath Sounds Implantable Cardiac Device Does patient have a Pacemaker or an ICD?: No Airway Exam Known Difficult Airway: No Mallampati Class: 1 Mouth Opening: Normal (> 3cm) Thyromental Distance: Greater than 3 cm Neck Range of Motion: Full ROM Neck Circumference: Normal Teeth Condition: Normal Dentition ASA Classification ASA Score: ASA 2 Emergency Case?: No NPO Status NPO Status: Full Stomach Status Status: Confirmed Anesthesia Plan Resuscitation Status: Full Code Anesthesia Technique: Spinal Anesthesia Airway Planned: Natural Airway Monitors Used: Standard Monitors Preoperative Comments:: Pt. states difficulty with spinal in past. Will have US at bedside just in case. Reviewed radiology images/reports and scoliosis does not appear to be significant. Pt. does not wish for any epidural services at this point.
[2022-04-18] MEDS: Lactated Ringers 1,000 ML 125 ML IV (22:53)
[2022-04-18 23:09] VITALS: BMI 34.7
--- NOTE | 2022-04-18 23:23 | W.OBCONSULT ---
Date of service: 04/18/22 Time of Service: 23:23 Assessment and Plan Assessment and plan (1) Spontaneous onset of labor: Status: Acute Assessment and plan: Early active labor (2) Uterine scar from previous delivery, antepartum: Status: Acute Assessment and plan: Prior section, desires trial of labor. Understands both maternal and indications for alternate of delivery by section. Full informed consent obtained. (3) Rubella non-immune status, antepartum: Status: Acute (4) Susceptible to varicella (non-immune), currently : Status: Acute History of Present Illness History of Present Illness Chief Complaint: Early labor, prior section for breech Narrative: Notified of patient's admission with prior section and desire for trial of labor after section. During the course of her stay thus far overall she has a category 1 heart heart rate tracing, however she has had a few episodes of variable deceleration, longest being prolonged at approximately 1 minute. With position change she had good return to baseline. On examination. He is resting, comfortable, with a heart rate tracing in the 120s. We again reviewed trial of labor and the possibility of need for section. Patient was seen by anesthesia and anesthesia consent obtained. Consent for trial of labor, and for section with possible hysterectomy if there are maternal or indications. She understands the risk of anesthesia, risk of infection, bleeding, injury to surrounding organs. Full informed consent was obtained. Consults Consult date: 04/18/22 Requesting physician: Elise Fuchs Review of Systems Narrative: Comfortable, contractions a 7 out of 10 on a pain scale at the most intense Constitutional Constitutional: Reports as per HPI Eyes Eyes: Reports system reviewed and no additional complaints, except as documented Cardiovascular Cardiovascular: Reports system reviewed and no additional complaints, except as documented Respiratory Respiratory: Reports system reviewed and no additional complaints, except as documented Gastrointestinal Gastrointestinal: Reports system reviewed and no additional complaints, except as documented Genitourinary Genitourinary: Reports system reviewed and no additional complaints, except as documented Psychiatric Psychiatric: Reports system reviewed and no additional complaints, except as documented PFSH All Active Problems Spontaneous onset of labor (Acute) Susceptible to varicella (non-immune), currently (Acute) Rubella non-immune status, antepartum (Acute) Abdominal pain during (Acute) BMI 30.0-30.9,adult (Acute) Uterine scar from previous delivery, antepartum (Acute) (Acute) Medical History Amenorrhea Generalized anxiety disorder Major depressive disorder RLQ abdominal pain Scoliosis Upper abdominal pain Surgical History History of section (07/16/19) breech presentation. Chris Beyer Family History Mother Depression Father No problems noted. Sister Depression Sister No problems noted. Sister No problems noted. Sister No problems noted. Son No problems noted. Maternal Grandfather Cancer unknown type Maternal Grandmother No problems noted. Paternal Grandmother , in his 60s Cancer Unknown type Social History Smoking/Tobacco Use Status: Never Smoking risk assessment performed?: Yes Alcohol Intake: current Alcohol Intake frequency: holidays/special occasions only Alcohol type: wine and hard liquor Drug use: Daily Substance use type: marijuana Caregiver/Support person: No Household members: spouse, children and other Details: Cleopatra Tylermelissajosué Housing: apartment Number of Children: 1 Communication Needs: None Do you need help understanding health information?: Never current occupation: [employer] Pets and animals: Yes Pets and animals: cat(s) and dog(s) Sexually active: Yes Do you think of yourself as: straight/heterosexual Current gender identity: female What is your relationship status?: How often do you talk on the phone with friends or family?: twice per week How often do you get together with friends or relatives?: twice per week How often do you attend synagogue or nondenominational services?: decline to answer Do you belong to any clubs or organized social groups?: no Panel score (0-1 are the most socially isolated patients): 2 Seatbelt use: always Helmet use: Yes Drive intox or ride w/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 Date GA/Weeks # Preg Succ Route Wgt Sex Labor Lgth Anesthesia Location Prov [facility] 07/16/19 39 No 7 lb [address] Jaime [facility] Delivery Date: 07/16/19 Last Updated by: Shonda Koehler Breech, ECV unsuccessful at 38 wks, sched'ed C/S. [place] Exam Narrative Exam Narrative: Alert, oriented, no acute distress Const General: cooperative, healthy appearing and comfortable Eyes General: appearance normal, both eyes and all related structures Neck Neck: normal visual inspection and supple Resp Effort & Inspection: normal respiratory effort, no audible wheezes and no cough Cardio Rate: regular rate GI Inspection: normal to inspection Palpation: soft Extrem General: normal to inspection and no clubbing, cyanosis or edema Results Last Vital Signs Temp 98 F 04/18/22 20:41 Pulse 84 04/18/22 20:41 Resp 16 04/18/22 20:41 BP 122/75 04/18/22 20:41 Pulse Ox 98 04/18/22 20:41 Labs Result diagrams: 04/18/22 20:07 Labs: Laboratory Results - last 24 hr 04/18/22 04/18/22 04/18/22 20:07 20:07 20:07 WBC 12.42 H RBC 4.26 Hgb 12.5 Hct 36.7 MCV 86 MCH 29.3 MCHC 34.1 RDW 12.7 Plt Count 233 MPV 9.1 COVID-19 Source Nasal/Nares SARS-CoV-2 (PCR) Negative Patient ABO/Rh AB Positive Antibody Screen NEGATIVE
--- NOTE | 2022-04-18 23:41 | W.OBNST ---
Date of service: 04/18/22 Time of Service: 20:00 NST Evaluation Reason for NST Reasons for Nonstress Test: OTHER, SEE COMMENT Reason for NST Other: TOLAC rule out labor Gestational Age Gestational Age in Weeks and Days: 40 Weeks and 1Days Test and Monitor Explained Test/Monitor Explained: Test Explained Vital Signs Blood Pressure: 129/79 Pulse: 98 Temperature: 98.2 F Urine Results Urine Protein: Negative Urine Ketones: Negative Urine Glucose: Negative Urine Blood: Positive NST Information Date on Monitor: 04/18/22 Time on Monitor: 18:30 NST Interventions: PO Hydration, Reposition Patient and Notify Provider NST Evaluation Patient States Movement: Present FHR Baseline: 125 Variability: Moderate 6-25 bpm Accelerations: 15x15 Decelerations: Late NST Results: Reactive Note NST Note Note: Naty presented to the center with regular contractions. cervix 1 cm/50% and -2 station. NST reactive. Admitted to observation for rule out labor. NST Reviewed and Verified by: Elise Fuchs
[2022-04-18 23:42] VITALS: BP 129/79; PULSE 98; TEMP 36.8
[2022-04-19] VITALS (41 sets, daily range): BP systolic 84–143; BP diastolic 51–88; PULSE 85–123; RESP 16; TEMP 36.6–37.4; O2SAT 97–100
--- NOTE | 2022-04-19 02:23 | W.PM.OBNL1 ---
Date of service: 04/19/22 Time of Service: 02:23 Pelvic Exam Dilation: 3 Effacement (%): 90 station: -1 Cervix Position: posterior Consistency: soft Vaginal Exam Presentation: Vertex Contractions Monitor Mode: External Contraction Frequency(min): 3-5 minutes Contraction Duration(sec): 50-60 Intensity: Moderate/Strong Fetus A Monitor: External (US) Heart Rate Baseline: 130 Presentation: Vertex Variability: Moderate (6-25 BPM) Categories: Category I FHR Rhythm: Regular Accelerations: 15 X 15 Decelerations: None Amniotic Membrane Status: Intact Assessment and Plan Assessment and plan (1) Spontaneous onset of labor: Status: Acute (2) Uterine scar from previous delivery, antepartum: Status: Acute Objective Abnormal lab results 04/18/22 Range/Units 20:07 WBC 12.42 H (4.4-10.8) 10^3/uL Temp Pulse Resp BP Pulse Ox 98.2 F 84 16 132/65 98 04/19/22 00:53 04/18/22 20:41 04/18/22 20:41 04/19/22 00:53 04/18/22 20:41 Laboratory Results WBC 12.42 10^3/uL (4.4-10.8) H 04/18/22 20:07 RBC 4.26 10^6/uL (3.93-5.22) 04/18/22 20:07 Hgb 12.5 g/dL (11.2-15.7) 04/18/22 20:07 Hct 36.7 % (36.0-46.0) 04/18/22 20:07 MCV 86 fL (80-95) 04/18/22 20:07 MCH 29.3 pg (27.0-33.0) 04/18/22 20:07 MCHC 34.1 % (32.0-36.0) 04/18/22 20:07 RDW 12.7 % (11.7-14.6) 04/18/22 20:07 Plt Count 233 10^3/uL (130-400) 04/18/22 20:07 MPV 9.1 fL (8.0-11.0) 04/18/22 20:07 COVID-19 Source Nasal/Nares 04/18/22 20:07 SARS-CoV-2 (PCR) Negative (Negative) 04/18/22 20:07 Patient ABO/Rh AB Positive 04/18/22 20: Antibody Screen NEGATIVE 04/18/22 20: Subjective Interval history since last seen: Aline is resting on her side. She is coping well with discomfort. Results Hemoglobin/Hematocrit: Hgb 12.5 g/dL (11.2-15.7) 04/18/22 20: Hct 36.7 % (36.0-46.0) 04/18/22 20: Abnormal Lab Findings: Abnormal Labs 04/18/22 20: WBC 12.42 H
[2022-04-19] MEDS: Penicillin G POT. 3,000,000 UNITS in Normal Saline 50 ML 100 UNITS IVPB ×4 (02:31→15:39)
[2022-04-19] MEDS: Lactated Ringers 1,000 ML 125 ML IV ×2 (03:52→12:37)
--- NOTE | 2022-04-19 07:37 | W.PM.OBNL1 ---
Date of service: 04/19/22 Time of Service: 07:37 Pelvic Exam Dilation: 3 Effacement (%): 90 station: -1 Cervix Position: posterior Consistency: soft Pooling: Positive (scant amount of blood tinged fluid noted on pad. Nitrazine equivocal.) Contractions Monitor Mode: External Contraction Frequency(min): every 3-5 Contraction Duration(sec): 50-60 Intensity: Moderate/Strong Fetus A Monitor: External (US) Heart Rate Baseline: 130 Presentation: Vertex Variability: Moderate (6-25 BPM) Categories: Category I FHR Rhythm: Regular Accelerations: 15 X 15 Decelerations: None Amniotic Membrane Status: Other (ROM plus taken. await results) Assessment and Plan Assessment and plan (1) Spontaneous onset of labor: Status: Acute Assessment and plan: Care will be assumed by Melody Koehler at 0815. Awaiting ROM plus result. (2) Previous section: Status: Chronic Assessment and plan: Dr. Garcia is aware of patient's status and present in the hospital. Objective Abnormal lab results 04/18/22 Range/Units 20:07 WBC 12.42 H (4.4-10.8) 10^3/uL Temp Pulse Resp BP Pulse Ox 98.6 F 93 H 16 123/81 98 04/19/22 04:17 04/19/22 04:17 04/18/22 20:41 04/19/22 04:17 04/18/22 20:41 Laboratory Results WBC 12.42 10^3/uL (4.4-10.8) H 04/18/22 20:07 RBC 4.26 10^6/uL (3.93-5.22) 04/18/22 20:07 Hgb 12.5 g/dL (11.2-15.7) 04/18/22 20:07 Hct 36.7 % (36.0-46.0) 04/18/22 20:07 MCV 86 fL (80-95) 04/18/22 20:07 MCH 29.3 pg (27.0-33.0) 04/18/22 20:07 MCHC 34.1 % (32.0-36.0) 04/18/22 20:07 RDW 12.7 % (11.7-14.6) 04/18/22 20:07 Plt Count 233 10^3/uL (130-400) 04/18/22 20:07 MPV 9.1 fL (8.0-11.0) 04/18/22 20:07 COVID-19 Source Nasal/Nares 04/18/22 20:07 SARS-CoV-2 (PCR) Negative (Negative) 04/18/22 20:07 Patient ABO/Rh AB Positive 04/18/22 20: Antibody Screen NEGATIVE 04/18/22 20:07 Subjective Interval history since last seen: Yannick slept in a few naps and is awake now and has been ambulating and sitting on the ball for comfort. Results Hemoglobin/Hematocrit: Hgb 12.5 g/dL (11.2-15.7) 04/18/22 20:07 Hct 36.7 % (36.0-46.0) 04/18/22 20:07 Abnormal Lab Findings: Abnormal Labs 04/18/22 20:07 WBC 12.42 H
[2022-04-19 08:00] LABS: ROM Plus Positive
--- NOTE | 2022-04-19 09:17 | W.PM.OBNL1 ---
Date of service: 04/19/22 Time of Service: 09:17 Informed Consent Informed Consent: Augmentation of Labor and Risk,Benefits,Alternatives Discussed (Pt declines pitocin augmentation at this time, has agreed to reassessment for progress and potentiol pitocin augmentation at noon today.) Pelvic Exam Dilation: 3 (CNM exam done 0815) Contractions Monitor Mode: External Contraction Frequency(min): 2-3 in 10 minutes Contraction Duration(sec): 50-60 Intensity: Moderate Fetus A Monitor: External (US) Heart Rate Baseline: 145 Variability: Moderate (6-25 BPM) Categories: Category I Accelerations: 15 X 15 Decelerations: None Amniotic Membrane Status: Ruptured Assessment and Plan Assessment and plan (1) Spontaneous onset of labor: Status: Acute Assessment and plan: A: 21 yo , prev C/S for breech Strong desire for TOLAC/ Prodromal phase labor progressed to 3 cm by this morning Category 1 tracing, GBS+, PCN prophylaxis SROM x 9 hrs, clear Continuous EFM and IV access maintained P: Extensive discussion with pt, FOB & mother regarding plan of care Will reassess for progression to active labor at noon Nipple stim, ambulation, etc to encourage contraction strength Pitocin augmentation is recommended, pt declines at this time Dr. Boss consulting, OR team inhouse for TOLAC process (2) Previous section: Status: Chronic Objective Vital Signs Reviewed: Yes Objective Narrative Objective Narrative: Afebrile, normotensive, category 1 tracing throughout the night, SROM clear at ~MN Prodromal phase, spontaneous onset, progressed from 1 cm to 3 cm since arrival in unit Pt sitting on physioball, FOB and her mother present for support Occasional contractions that are moderate in strength by palp, pt breathes through them eyes closed, coping well. Is adequately prophylaxed for GBS (x3 doses PCN) IV fluids LR infusing, 600 ml thus far, voiding qs Pt tolerating clear fluid intake with crackers or toast to ease indigestion Risks/benefits of pitocin augmentation reviewed in detail, including increased risk for uterine rupture and need for emergency C/S Risks/benefits of continued expectant management reviewed in detail including unscheduled C/S for arrest of progress, infection, exhaustion Pt expresses desires to avoid regional anesthesia and also hopes to avoid pitocin augmentation Agrees to take measures to increase contractions with nipple stimulation, ambulation, showering, etc Agrees to re-evaluation for progress and pitocin augmentation at noon (12 hrs ROM) Subjective Interval history since last seen: Contractions continue, some stronger, others less so. Occasionally leaking clear or blood tinged fluids, best estimation of SROM was around midnight when she first felt wetness on the bed. Reports feeling hungry and is nibbling on saltine crackers. States she wants to avoid pitocin augmentation and is willing to try nipple stimulation and ambulation to increase contraction pattern. Verbalizes understanding that without cervical change after several hours of SROM, pitocin augmentation is recommended. Results Hemoglobin/Hematocrit: Hgb 12.5 g/dL (11.2-15.7) 04/18/22 20:07 Hct 36.7 % (36.0-46.0) 04/18/22 20:07
--- NOTE | 2022-04-19 12:09 | W.PM.OBNL1 ---
Date of service: 04/19/22 Time of Service: 12:09 Informed Consent Informed Consent: Augmentation of Labor and Risk,Benefits,Alternatives Discussed Pelvic Exam Dilation: 5 Effacement (%): 100 station: -2 Position: LOP Cervix Position: anterior Consistency: soft Contractions Monitor Mode: External Contraction Frequency(min): 4-7 minutes Contraction Duration(sec): 50-60 Intensity: Moderate Fetus A Monitor: External (US) Heart Rate Baseline: 145 Variability: Moderate (6-25 BPM) Categories: Category I Accelerations: 15 X 15 Decelerations: Early Recurrence: Intermittent Amniotic Membrane Status: Ruptured Assessment and Plan Assessment and plan (1) Spontaneous onset of labor: Status: Acute Assessment and plan: A: TOLAC in progress Active labor though inadequate contraction frequency P: Begin low dose pitocin augmentation Dr. Boss reviewed tracing and consulting Anticipate Comfort measures as needed (2) Previous section: Status: Chronic Objective Vital Signs Reviewed: Yes Objective Narrative Objective Narrative: Pt vocalizing with contractions, FOB providing low back massage Denies nausea, vaginal fluids are pink tinged Category 1 tracing overall with early decels, Variable x1 noted with rapid recovery to baseline, moderate variability Dr. Boss reviewed tracing Subjective Interval history since last seen: Contractions feel stronger but remain far apart. Pt agrees to low dose pitocin augmentation after R&B discussed, expresses interest in using tub for labor, I reviewed requirement for continuous EFM which must be maintainable in the tub so will keep water somewhat shallow if she does decide she wants to try it. Pt offered regional anesthesia and she declines. Pt offered nitrous inhalant, pt will give it a try.
[2022-04-19] MEDS: Oxytocin/Normal Saline 30 UNIT/500 ML BAG 2 UNITS IV (12:37)
--- NOTE | 2022-04-19 16:36 | PGE_ITS ---
Date of service: 04/19/22 Time of Service: 16:36 Informed Consent Informed Consent: Augmentation of Labor, Regional Anesthesia and Risk,Benefits,Alternatives Discussed Pelvic Exam Dilation: 7 Effacement (%): 100 station: -1 Position: LOP Contractions Monitor Mode: External Contraction Frequency(min): 2-3 minutes Contraction Duration(sec): 50-70 Intensity: Moderate/Strong Fetus A Monitor: External (US) Heart Rate Baseline: 140 Variability: Moderate (6-25 BPM) Categories: Category I Accelerations: Present Decelerations: Early Amniotic Membrane Status: Ruptured Assessment and Plan Assessment and plan (1) Spontaneous onset of labor: Status: Acute Assessment and plan: A: Active labor, pitocin augmentation, TOLAC Category 1 tracing P: [employer] paged with epidural request IV access already established and patent (2) Previous section: Status: Chronic Objective Vital Signs Reviewed: Yes Objective Narrative Objective Narrative: Pt vocalizing with contractions, relaxing between FOB providing effective support Has been using comfort measures and now req regional anesthesia SVE done, cvx dilated to 7, LOP with palpable molding, no caput, at -1 station Overall category 1 tracing Pitocin at 6 mu/min for effective contraction pattern Subjective Interval history since last seen: Feeling vaginal pressure, contractions are very painful, requesting epidural. Has ambulated, rested LLP, and been in tub for past 90 minutes,using nitrous to good effect, emesis once iwhile in tub, feeling shakey and nauseated, very tired.
[2022-04-19] MEDS: fentaNYL 100 MCG/2 ML VIAL EP (17:25)
[2022-04-19] MEDS: Bupivacaine 0.25% Pres-Free 10 ML VIAL EP (17:25)
--- NOTE | 2022-04-19 17:47 | W.ANESNEU ---
Epidural/Spinal Catheter Date Performed: 04/19/22 Procedure Start: 17:04 Procedure Stop: 17:28 Requesting Provider: Shonda Koehler Procedure Location: Obstetrics Reason Performed: Labor Epidural Standard Monitors Applied: Blood Pressure, SpO2 and See EMR for corresponding vital signs Patient Position: Sitting Sedation Given (Indicate Dose Given): No Sedation given Patient Mental Status: Awake Sterility: Hand Hygiene, Surgical Cap, Surgical Mask, Sterile Gloves, Sterile Drape/Sheet and Chlorhexidine Procedure Location: L2-L3 Interspace Epidural Needle: Tuohy 18 Gauge Needle Length: 3.5 Inch Needle Approach: Midline Epidural Procedure: Skin Prepped, Sterile Drape Placed, 1% Lidocaine to skin and subcutaneous tissue with 25G needle, Tuohy Needle placed, RITA to Saline Used, Epidural Catheter Placed, Negative Heme, Negative CSF Flow and Tuohy Needle Removed Catheter Placed?: Catheter Placed Test Dose (Indicate Dose Given): 3ml 1.5% Lidocaine with 1:200K Epinephrine Given and Negative Test Dose Loss of Resistance Depth (cm): 8 Catheter depth at skin (cm): 13 Dressing: [place] Dressing Placed and Mastisol Used Epidural Provider Bolus (Indicate Dose Given): Total bolus dose given in 3-5 ml divided doses and Total Bupivacaine 0.25% Given (ml) Dose:: 6 ml Additives (Indicate Dose Given ): Fentanyl PF Dose:: 100 mcg Infusion Medication: Medication Infusion Began Medication Infusion: Ropivacaine 0.1% with Fentanyl 2mcg/ml Maintenance Infusion Rate (ml/hour): 10 PCEA Bolus Dose (ml): 5 Post Procedure Pain score (0-10): 5 Block Level: N/A Paresthesia: None Ultrasound: Not Used Number of Attempts (See previous attempts in note section): 1 Procedure Tolerated: No Complications and Patient tolerated well Procedure Outcome: Successful Performed By: Gypsy Welsh
--- NOTE | 2022-04-19 18:02 | PGE_ITS ---
Date of service: 04/19/22 Time of Service: 18:02 Informed Consent Informed Consent: Augmentation of Labor Pelvic Exam Dilation: 8.5 station: -1 Position: LOT Contractions Monitor Mode: Internal Contraction Frequency(min): 2 Contraction Duration(sec): 60 IUPC resting tone (mmHg): 0 IUPC peak pressure (mmHg): 50 IUPC [place] units: 200 Fetus A Monitor: External (US) Heart Rate Baseline: 140 Variability: Moderate (6-25 BPM) Categories: Category I Assessment and Plan Assessment and plan (1) Previous section: Status: Chronic (2) Spontaneous onset of labor: Status: Acute Assessment and plan: A: Effective epidural, pit aug 8-9 cm with bloody show, vtx @ -1 TOLAC; moderate risk level P: IUPC inserted without trouble MVU's appear adequate with pitocin at 6mu/min Change maternal positions to facilitate rotation & descent Anticipate , OB & OR team inhouse if needed Objective Vital Signs Reviewed: Yes Objective Narrative Objective Narrative: Pt visibly relaxed, smiling, resting Vital signs stable status stable Adequate labor per IUPC Subjective Interval history since last seen: Good pain relief with epidural, can still feel pressure from contractions but pain level is down to 5/10 now.
[2022-04-19] MEDS: Penicillin G POT. 3,000,000 UNITS in Normal Saline 50 ML 50 UNITS IVPB (18:58)
--- NOTE | 2022-04-19 19:42 | OBVDS_ITS ---
Date of service: 04/19/22 Time of Service: 19:42 OB Labor/ Delivery Information Baby A Delivery Delivery Method: Spontaneaous Presentation: Cephalic Cephalic Position: Vertex Vertex Position: Left Occipital Anterior Breech Position: N/A Cord Description-Baby A: 3 Vessels, Nuchal Cord and Reduced Amniotic Fluid: Clear Estimated Blood Loss: 200 ml Delivery Outcome: Liveborn Transferred: Remains with Mother Note: Pt relaxed well after epidural placed, IUPC inserted to assess adequacy of labor pattern, pitocin augmentation held at 6 cm and she progressed rapidly to full dilation. 2nd stage huddle was completed, straight cath performed for 200 ml clear yellow urine, category 2 tracing noted with variable decels during contractions and slowing return to baseline with descent. Pt assumed supported squat position with feet on bed bar and using sheet-pull for leverage made excellent efforts over 20 minutes accomplishing of a vigorous male infant, loose nuchal cord reduced overhead and shoulders came easily, to mother's arms immediately for stimulation and drying. Pitocin bolus begun, Emeli placenta delivered intact with 3VC, cord then clamped and cut by FOB and cord blood collected. Perineum/vagina inspected and found to be intact, bilateral labial lacerations noted, right labia with wider lac but superficial and not bleeding, no extension into vaginal tissue, not repaired and homeostatic. Fundus firm below umbilicus, minimal rubra. Apgars 7/9, weight 3310 gms. Peds inhouse so came to examine infant at 40 minutes after delivery. Circumcision is planned for tomorrow, strong family bonding observed. Providers Nurse Routing Machine Operator: Shonda Koehler Nurse: Lisa Burt Nurse: Regan Oneil Labor/Delivery Information Number of Babies in Womb: 1 Steroids Given: None Reason Steroids Not Administered: N/A Group Beta Strep: Positive Antibiotics Administered: Yes Number of Doses of Antibiotics: 6 Rubella Status: Nonimmune Blood Type: AB+ Varicella Immunity: Nonimmune Medication in Delivery: pitocin augmentation then bolus Maternal Complications: None Shoulder Dystocia: No Stages of Labor Onset of Labor Date: 04/18/22 Onset of Labor Time: 15:00 Complete Dilatation Date: 04/19/22 Complete Dilatation Time: 18:45 Labor - Stage 1 Duration: 27 hours and 45 minutes ROM Baby A: 04/19/22 ROM Baby A: 00:00 Delivery Date-Baby A: 04/19/22 Delivery Time-Baby A: 19:20 Labor Stage 2 Duration: 35 minutes Placenta Delivery Date-Baby A: 04/19/22 Placenta Delivery Time-Baby A: 19:26 Labor-Stage 3 Duration: 6 minutes Total Length of Labor-Baby A: 28 hours and 20 minutes Placenta Cultured: No Placenta Status: Delivered Baby A Gender: Male Gestational Status: Term (39-41.6 wks) weight: 7 lb 4.757 oz Weight Comment: 3310 gms Score-1 Minute Interval(Baby A) Heart Rate-1 minute: 100 BPM or Greater Respiratory Effort- 1 minute: Slow Respiration/Weak Cry Muscle Tone-1 minute: Minimal Flexion/Extension Reflex Response-1 minute: Prompt Response Color-1 minute: Bluish Hands or Feet Score-5 Minute Interval(Baby A) Heart Rate- 5 minute: 100 BPM or Greater Respiratory Effort-5 minute: Spontaneous/Strong Cry Muscle Tone-5 minute: Active Movement Reflex Response-5 minute: Prompt Response Color-5 minute: Bluish Hands or Feet
[2022-04-20] MEDS: Dibucaine 1% 28 GM TUBE TP (03:14)
[2022-04-20] MEDS: Hamamelis Leaf/Glycerin 100 EACH BOX PR (03:14)
[2022-04-20 07:49] VITALS: BP 102/64; PULSE 91; RESP 16; TEMP 36.8; O2SAT 97
--- NOTE | 2022-04-20 08:36 | W.PM.OBPNV1 ---
Date of service: 04/20/22 Time of Service: 08:36 Assessment and Plan Assessment and plan (1) , delivered, current hospitalization: Status: Acute Assessment and plan: A: PPD#1, nml recovery Experienced mother, well Pleased with experience P: Desires discharge at 24 hrs Offer Rubella and Varicella vaccines prior to discharge F/up at 2 & 6 wks Considering Paragard IUD at 6-8 wks Written instructions reviewed and given to pt Subjective Subjective Patient comments: No complaints, Pain well controlled, Tolerating diet and Flatus present Patient's Mood: happy [place] baby status: Doing well, Nursing well, Rooming in and Strong Bonding Observed feeding status: Exclusively breast feeding Exam Physical Exam Vital signs: Temp Pulse Resp BP Pulse Ox 98.2 F 91 H 16 102/64 97 04/20/22 07:49 04/20/22 07:49 04/20/22 07:49 04/20/22 07:49 04/20/22 07:49 Vital Signs Reviewed: Yes Constitutional Constitutional: no acute distress, average body habitus and cooperative HEENT Exam HEENT Exam: Normal Neck Exam Neck Exam: Normal Breast Exam Bilateral: Breast Exam: Normal and Soft Nipple Exam: Normal and Uninjured Respiratory Exam Respiratory Exam: Normal Cardiovascular Exam Cardiovascular Exam: Normal Abdominal Exam Abdomen: Other (soft, nontender) Fundal Exam Fundus: Below Umbilicus and Firm Rectal Exam Rectal Exam: Not Done Exam Perineum: Intact and Normal Extremities Exam Extremity Exam: Normal, Full ROM and Warm to Touch Back/Spine/Pelvis Exam Back Exam: Normal Skin Exam Skin Exam: Normal Neurological Exam Neurological Exam: Normal Psychiatric Exam Psychiatric Exam: Normal
[2022-04-20] MEDS: Docusate Sodium 100 MG CAP PO (08:37)
--- NOTE | 2022-04-20 10:50 | W.ANESPOSTOP ---
Postoperative Evaluation Date, Time and Location Date Performed: 04/20/22 Time Performed: 10:33 Patient Location: Day Surgery Unit Vital Signs Most Recent Imported Vital Signs: Most Recent Vital Signs Temp Pulse Resp BP Pulse Ox 36.8 C 91 H 16 102/64 97 04/20/22 07:49 04/20/22 07:49 04/20/22 07:49 04/20/22 07:49 04/20/22 07:49 Pain Score Most Recent Pain Score: Most Recent Pain Score Pain Level [Abdomen] 0 04/19/22 21:11 Pain Level 7 04/18/22 20:41 Assessment Mental Status: Awake (Alert & Oriented to Patient Baseline) Airway and Respiratory Function: Patent airway with normal (patient baseline) respiratory exam Cardiovascular Function: Hemodynamically Stable Hydration Status: Adequately Hydrated Nausea & Vomiting: No Nausea or Vomiting Pain: Pain is tolerable per patient (110 when moving) Peripheral Nerve Block: Patient did not receive a nerve block
[2022-04-20] MEDS: Acetaminophen 325 MG TAB 650 MG PO (11:41)
[2022-04-20 18:24] VITALS: BP 114/70; PULSE 97; RESP 16; TEMP 37.2; O2SAT 98
--- NOTE | 2022-04-20 20:15 | DSE_ITS ---
Date of service: 04/20/22 Time of Service: 20:16 DS: Diagnosis Discharge Diagnosis (1) , delivered, current hospitalization: Status: Acute Discharge Plan Disposition Patient Disposition: Home Condition: Good Discharge Details Reason For Visit: TOLAC, rule out labor Admit Date/Time: 04/18/22 23:13 Admit Provider: Elise Fuchs Attending Provider: Elise Fuchs Primary Care Provider: Paulette Smith Hospital Course Hospital Course: Admitted in labor, succesful, pt desires discharge at 24 hrs Home Meds and New Rx's Prescriptions: No Action 28-800 mg-mcg Tablet 1 tab PO DAILY Discharge Instructions Additional Instructions: Please keep your 2 & 6 wk appointments, we will plan your IUD insertion when meeting at your two week check up. Call for any and all concerns. Stand Alone Forms: BC Instructions, BC Post Vaginal Deliver Activity:: Activity as Tolerated Equipment/Supplies:: No Equipment Needed Diet:: Normal Diet Discharge Orders Discharge Orders: Discharge Order (Routine); Ordered 04/20/22 Ordered By: Shonda Koehler OB:DS Summary Summary Vaginal Delivery Method: Spontaneaous Episiotomy Description: None Laceration Description: Perineal Laceration Extension: N/A Contraception Discussed Contraception Discussed: Yes Contraceptive Plan: IUD, [place] Gender-Baby A: Male weight: 7 lb 4.757 oz Status at Discharge Functional status at discharge: independent ambulation Overall status at discharge: patient is progressing back to baseline Mental Status: mental status grossly normal Speech and Movement: speech and movement normal and speech clear Mood: congruent mood Affect: normal affect Exam Physical Exam Vital signs: Temp Pulse Resp BP Pulse Ox 99.0 F 97 H 16 114/70 98 04/20/22 18:24 04/20/22 18:24 04/20/22 18:24 04/20/22 18:24 04/20/22 18:24 Constitutional Constitutional: no acute distress, average body habitus and cooperative HEENT Exam HEENT Exam: Normal Neck Exam Neck Exam: Normal Breast Exam Bilateral: Breast Exam: Normal and Soft Respiratory Exam Respiratory Exam: Normal Cardiovascular Exam Cardiovascular Exam: Normal Abdominal Exam Abdomen: Other (soft, nontender) Fundal Exam Fundus: Below Umbilicus and Firm Rectal Exam Rectal Exam: Not Done Exam Perineum: Intact and Normal Extremities Exam Extremity Exam: Normal, Full ROM and Warm to Touch Back/Spine/Pelvis Exam Back Exam: Normal Skin Exam Skin Exam: Normal Neurological Exam Neurological Exam: Normal Psychiatric Exam Psychiatric Exam: Normal PFSH All Active Problems (Updated 04/20/22 @ 20:15 by Shonda Koehler) , delivered, current hospitalization (Acute) BMI 30.0-30.9,adult (Acute) Medical History (Updated 04/20/22 @ 20:15 by Shonda Koehler) Amenorrhea Generalized anxiety disorder Major depressive disorder RLQ abdominal pain Rubella non-immune status, antepartum Pt declines vaccine Scoliosis Spontaneous onset of labor Susceptible to varicella (non-immune), currently pt declines vaccine Upper abdominal pain Surgical History (Updated 04/19/22 @ 20:06 by Shonda Koehler) History of section (07/16/19) breech presentation. Chris Samson. Previous section breech presentation Family History Mother Depression Father No problems noted. Sister Depression Sister No problems noted. Sister No problems noted. Sister No problems noted. Son No problems noted. Maternal Grandfather Cancer unknown type Maternal Grandmother No problems noted. Paternal Grandmother , in his 60s Cancer Unknown type Social History Smoking/Tobacco Use Status: Never Smoking risk assessment performed?: Yes Alcohol Intake: current Alcohol Intake frequency: holidays/special occasions only Alcohol type: wine and hard liquor Drug use: Daily Substance use type: marijuana Caregiver/Support person: No Household members: spouse, children and other Details: Cleopatra Ulrich Housing: apartment Number of Children: 1 Communication Needs: None Do you need help understanding health information?: Never current occupation: [employer] Pets and animals: Yes Pets and animals: cat(s) and dog(s) Sexually active: Yes Do you think of yourself as: straight/heterosexual Current gender identity: female What is your relationship status?: How often do you talk on the phone with friends or family?: twice per week How often do you get together with friends or relatives?: twice per week How often do you attend restoration or baptist services?: decline to answer Do you belong to any clubs or organized social groups?: no Panel score (0-1 are the most socially isolated patients): 2 Seatbelt use: always Helmet use: Yes Drive intox or ride w/intox class b driver: No Do you feel safe at home: Yes Do you feel safe in your relationship?: Yes Female Reproductive History Menstrual control method: none History History 2 Para 1 Hx # Term Pregnancies 1 Multiple births 0 Hx # Pregnancies 0 Ectopic pregnancies 0 AB induced 0 Hx Number of Living Children 1 AB spontaneous 0 Past Pregnancies Del. Date GA/Weeks # Preg Succ Route Wgt Sex Labor Lgth Anesth esia Location Prov Compl 07/16/19 39 No 7 lb [address] [facility]ime [facility] Delivery Date: 07/16/19 Last Updated by: Shonda Koehler Breech, ECV unsuccessful at 38 wks, sched'ed C/SJesse Samson DS: Data Vitals/I&O Vitals and I&O: Vital Signs Temperature 99.0 F 04/20/22 18:24 Pulse 97 H 04/20/22 18:24 Pulse Rhythm Regular 04/20/22 07:50 Respiratory Rate 16 04/20/22 18:24 Blood Pressure 114/70 04/20/22 18:24 Blood Pressure Mean 84 04/20/22 18:24 Pulse Oximetry 98 04/20/22 18:24 Oxygen Delivery Method Room Air 04/18/22 20:41 Oxygen Flow Rate 0 04/18/22 20:41 Pain Level 0 04/19/22 21:11 Intake & Output 04/19/22 04/20/22 04/20/22 23:59 11:59 23:59 Intake Total 253.4 / 3026.317 1346.6 / 1346.6 Output Total 800 / 2250 700 / 700 Balance -546.6 / 776.317 646.6 / 646.6 Intake: IV 253.4 / 2526.317 1346.6 / 1346.6 Output: Urine 600 / 2050 700 / 700 Blood 200 / 200 Other: Urine Color Pale Bright Red Urine Appearance Clear Clear Urine Odor Normal Comment Straight catheter before pushing started Voiding Methods Toilet Toilet
== END 2022-04-20 20:45 | disposition home or self-care (01) | DRG 807 ==
PROVIDERS: Admitting Provider Advanced Practice Midwife; PCP Nurse Practitioner Family; Visit Provider Advanced Practice Midwife
DX: O34.219 Maternal care for unspecified type scar from previous cesarean delivery (principal); Z37.0 Single live birth; Z3A.40 40 weeks gestation of pregnancy; O99.344 Other mental disorders complicating childbirth; F41.1 Generalized anxiety disorder; F32.9 Major depressive disorder, single episode, unspecified; N85.8 Other specified noninflammatory disorders of uterus; O70.0 First degree perineal laceration during delivery; O69.81X0 Labor and delivery complicated by cord around neck, without compression, not applicable or unspecified
CPT/HCPCS: 84112; 85027; 86850; 86900; 86901; 87635; J2540; J3010

== ENCOUNTER 2024-09-11 01:04 | Outpatient (CLI) | payer MEDICAID, SELFPAY ==
--- NOTE | 2024-09-11 07:45 | DI.US_ITS ---
Exam(s) US PELVIS TRANSVAGINAL EXAM: US PELVIS TRANSVAGINAL CLINICAL HISTORY: ovarian follicle count, endo lining, ? PCOS,oligomenorrhea,n91.5 TECHNIQUE: Ultrasound of the pelvis was performed both transabdominal and transvaginal. COMPARISON: US US PELVIS TRANSVAGINAL from 10/12/2020 FINDINGS: UTERUS: Anteverted Measures 7.8 cm length x 4.5 cm AP x 5.6 cm wide. There are no uterine fibroids. Endometrial thickness measures 9 mm. And is relatively homogeneous. The previously present IUD is n o longer seen. There is no fluid in the endometrial canal. CERVIX: There are no obvious nabothian cysts. RIGHT OVARY: Measures 3.3 x 1.8 x 1.5 cm There are approximately 20 sub cm size right ovarian follicles previously present large complex cyst seen on prior ultrasound examination of 2020 is no longer evident. LEFT OVARY: Not able to be identified. CUL-DE-SAC: No free fluid evident. IMPRESSION: 1. Normal appearing uterus and age-appropriate endometrium. 2. Multiple small sub cm follicles noted in the right ovary. 3. The left ovary was not able to be identified both transabdominally and transvaginally. No free fluid. DATA REPOSITORY:
== END 2024-09-11 01:24 ==
LOC: DI 01:04
PROVIDERS: PCP Nurse Practitioner Family; Visit Provider Advanced Practice Midwife
DX: N91.5 Oligomenorrhea, unspecified (principal)
CPT/HCPCS: 76830; 76856

== ENCOUNTER 2024-09-17 02:52 | Outpatient (CLI) | payer MEDICAID, SELFPAY ==
[2024-09-17 09:56] LABS: Hemoglobin A1C 5.4 % (<5.7)
[2024-09-17 10:09] LABS: Glucose 97 mg/dL (74-106); HCG Quant, Pregnancy 2 mIU/mL (1-3); TSH (W/Ref FT4) 2.05 uIU/mL (0.36-3.74)
[2024-09-17 19:36] LABS: FSH 4.3 mIU/mL (See Note)
[2024-09-17 19:40] LABS: LH 5.1 mIU/mL (See Note); Sex Hormone Binding Globulin 24.1 nmol/L (See Note)
[2024-09-18 11:56] LABS: Chlamydia Result Negative (Negative); GC Result Negative (Negative)
[2024-09-19 07:45] LABS: Insulin 7.7 uIU/mL (<29.0)
[2024-09-23 22:38] LABS: 17-Hydroxyprogesterone <40 ng/dL
== END 2024-09-17 02:53 | disposition home or self-care (01) ==
LOC: LBO 02:53
PROVIDERS: Advanced Practice Midwife; PCP Nurse Practitioner Family; Visit Provider Advanced Practice Midwife
DX: N91.5 Oligomenorrhea, unspecified (principal)
CPT/HCPCS: 36415; 82947; 83498; 84403; 87491; 87591; 83001; 83002; 83036; 83525; 84146; 84270; 84443; 84702

== ENCOUNTER 2024-09-26 14:40 | Outpatient (REF) | payer MEDICAID, SELFPAY ==
--- NOTE | 2024-09-26 13:50 | PAPFT_PTH ---
PATIENT: Naty Tracy LOC: [facility] U#:[id number] AGE/SX: 23/F ROOM: RE09/26/[address]: Shonda Koehler CNM : 2000 BED: DIS: 09/26/2024 SPEC #: [id number] RECD: 09/26/24 17:25 STATUS: CHACORTA CASTILLO #: [id number] NED: 09/26/24 13:[address]: Shonda Koehler [facility]PT[facility] Cytology RECD BY: Olivia Garcia ENTERED: 09/26/24 17:25 SP TYPE: PAPFT OT DR: Paulette Smith, [employer]ER Tissues: 1 - CX/ENDOCX FOR PAP SMEARS Procedures: PAP THIN PREP/UVM Screening Comments: [id number]
== END 2024-09-26 14:41 | disposition home or self-care (01) ==
LOC: LBN 14:40
PROVIDERS: PCP Nurse Practitioner Family; Visit Provider Advanced Practice Midwife
DX: Z12.4 Encounter for screening for malignant neoplasm of cervix (principal); B37.9 Candidiasis, unspecified
CPT/HCPCS: 88142